=== PATIENT | male | born 1970 | race American Indian/Alaskan Native ===

== ENCOUNTER 2019-01-13 01:29 | Emergency (ER) | payer OTHER ==
[2019-01-13] MEDS ORDERED: Ibuprofen 800 MG Tab PO ONE (01:30)
[2019-01-13] MEDS ORDERED: Cyclobenzaprine 10 MG Tab PO ONE (01:30)
--- NOTE | 2019-01-13 01:46 | EDM.PDOC ---
ED HPI GENERAL MEDICAL PROBLEM - General Stated Complaint: BACK SPASM Time Seen by Provider: 01/13/19 01:46 Source of Information: Reports: Patient History Limitations: Reports: No Limitations - History of Present Illness INITIAL COMMENTS - FREE TEXT/NARRATIVE: Woke up with Back pain,.Mid back spasms with No radiation.Has not taken anything for relief. Earlier in the day,he had been lifting heavy furniture. No direct trauma. upper back Pain Score (Numeric/FACES): 8 - Related Data Allergies Allergy/AdvReac Type Severity Reaction Status Date / Time No Known Allergies Allergy Verified 01/13/19 01:41 Home Meds: Home Meds Losartan [Cozaar] 25 mg PO DAILY 01/13/19 [History] ED ROS GENERAL - Review of Systems Review Of Systems: ROS reveals no pertinent complaints other than HPI. ED EXAM, GENERAL - Physical Exam Exam: See Below Exam Limited By: No Limitations General Appearance: Alert, WD/WN, No Apparent Distress Respiratory/Chest: No Respiratory Distress, Lungs Clear Cardiovascular: Regular Rate, Rhythm GI/Abdominal: Normal Bowel Sounds Back Exam: Normal Inspection, Muscle Spasm, Paraspinal Tenderness. No: Vertebral Tenderness Neurological: Alert, CN II-XII Intact Course - Vital Signs Last Recorded V/S: Last Vital Signs Temp 98.0 F 01/13/19 01:55 Pulse 59 L 01/13/19 01:55 Resp 17 01/13/19 01:55 BP 160/92 H 01/13/19 01:55 Pulse Ox 100 01/13/19 01:55 Departure - Departure Time of Disposition: 08:14 Disposition: Home, Self-Care 01 Condition: Good Clinical Impression: Back muscle spasm - Discharge Information Instructions: Thoracic Strain, [id number] Referrals: PCP,None [Primary Care Provider] - Forms: ED Department Discharge Additional Instructions: please take Flexeril one tab three times a day and take ibuprofen 1 tab three times a day as needed follow up with your primary care on Monday - Problem List & Annotations (1) Back muscle spasm SNOMED Code(s): 246664112 Code(s): M62.830 - MUSCLE SPASM OF BACK Status: Acute - Problem List Review Problem List Initiated/Reviewed/Updated: Yes - Assessment/Plan Plan: Naproxen 500 mg po bid and Flexeril 10 qhs
== END 2019-01-13 01:56 | disposition home or self-care (01) ==
LOC: FB.ED 01:29
DX: M62.830 Muscle spasm of back (principal); Z79.899 Other long term (current) drug therapy
CPT/HCPCS: 99283; A9270-GY

== ENCOUNTER 2019-07-19 20:54 | Emergency (ER) | payer OTHER ==
[2019-07-19] MEDS ORDERED: predniSONE 20 MG Tab PO ONE (21:50)
--- NOTE | 2019-07-19 21:55 | EDM.PDOC ---
ED HPI GENERAL MEDICAL PROBLEM - General Chief Complaint: General Stated Complaint: GOUT FLARE Time Seen by Provider: 07/19/19 21:50 Source of Information: Reports: Patient History Limitations: Reports: No Limitations - History of Present Illness INITIAL COMMENTS - FREE TEXT/NARRATIVE: Patient complains of right great toe joint pain and swelling since 1300 today, feels like a gout flare. He has been out of his Allopurinol x 1 month. Patient requests Prednisone 20 mg daily x 5 days. Denies other complaints. Onset Date: 07/19/19 Onset Time: 13:00 Location: Reports: Lower Extremity, Right Severity: Moderate - Related Data Allergies Allergy/AdvReac Type Severity Reaction Status Date / Time No Known Allergies Allergy Verified 07/19/19 21:48 Home Meds: Home Meds Losartan [Cozaar] 25 mg PO DAILY 01/13/19 [History] .Allopurinol 1 tab PO ASDIRECTED 07/19/19 [History] Aspirin [Ecotrin EC] 81 mg PO DAILY 07/19/19 [History] Metoprolol Succinate 50 mg PO ASDIRECTED 07/19/19 [History] predniSONE [Prednisone] 20 mg PO DAILY #4 tablet 07/19/19 [Rx] Past Medical History Cardiovascular History: Reports: Hypertension Musculoskeletal History: Reports: Gout ED ROS GENERAL - Review of Systems Review Of Systems: Comprehensive ROS is negative, except as noted in HPI. ED EXAM, GENERAL - Physical Exam Exam: See Below Exam Limited By: No Limitations General Appearance: Alert, WD/WN, No Apparent Distress Throat/Mouth: No Airway Compromise Head: Atraumatic, Normocephalic Neck: Full Range of Motion Respiratory/Chest: No Respiratory Distress Peripheral Pulses: 2+: Dorsalis Pedis (R) Extremities: Other (Erythema, swelling, warmth, and tenderness to right 1st MTP joint.) Neurological: Alert, Normal Cognition, No Motor/Sensory Deficits Psychiatric: Normal Affect, Normal Mood Skin Exam: Warm, Dry, Intact Course - Vital Signs Last Recorded V/S: Last Vital Signs Temp 36.9 C 07/19/19 20:55 Pulse 84 07/19/19 20:55 Resp 16 07/19/19 20:55 BP 155/90 H 07/19/19 20:55 Pulse Ox 100 07/19/19 20:55 - Orders/Labs/Meds Orders: Active Orders 24 hr Category Date Time Status predniSONE Med 07/19/19 21:50 Once 20 mg PO ONETIME ONE Departure - Departure Time of Disposition: 21:57 Disposition: Home, Self-Care 01 Condition: Good Clinical Impression: Acute gout Qualifiers: Gout site: foot Gout etiology: unspecified cause Laterality: right Qualified Code(s): M10.9 - Gout, unspecified - Discharge Information *PRESCRIPTION DRUG MONITORING PROGRAM REVIEWED*: No *COPY OF PRESCRIPTION DRUG MONITORING REPORT IN PATIENT BENJAMIN: Not Applicable Prescriptions: predniSONE [Prednisone] 20 mg PO DAILY #4 tablet Referrals: PCP,None [Primary Care Provider] - Additional Instructions: Fill the prescription for Prednisone and take as directed. Follow up in 2 days if symptoms don't improve. Sepsis Event Note - Focused Exam Vital Signs: Vital Signs Temp Pulse Resp BP Pulse Ox 07/19/19 20:55 36.9 C 84 16 155/90 H 100 Date Exam was Performed: 07/19/19 Time Exam was Performed: 21:50 - My Orders Last 24 Hours: My Active Orders 07/19/19 21:50 predniSONE 20 mg PO ONETIME ONE - Assessment/Plan Last 24 Hours: My Active Orders 07/19/19 21:50 predniSONE 20 mg PO ONETIME ONE
== END 2019-07-19 22:15 | disposition home or self-care (01) ==
LOC: FB.ED 20:54
DX: M10.9 Gout, unspecified (principal); I10 Essential (primary) hypertension; Z79.82 Long term (current) use of aspirin; Z79.899 Other long term (current) drug therapy
CPT/HCPCS: 99283; A9270

== ENCOUNTER 2020-02-14 20:49 | Emergency (ER) | payer OTHER ==
[2020-02-14] MEDS ORDERED: predniSONE 20 MG Tab PO ONE (20:50)
--- NOTE | 2020-02-14 21:22 | EDM.PDOC ---
ED HPI GENERAL MEDICAL PROBLEM - General Chief Complaint: Lower Extremity Injury/Pain Stated Complaint: GOUT INFLAMATION Time Seen by Provider: 02/14/20 20:50 Source of Information: Reports: Patient History Limitations: Reports: No Limitations - History of Present Illness INITIAL COMMENTS - FREE TEXT/NARRATIVE: pt comes in with c/o left ankle pain , tells me he has recurrent pain at left ankle secondary to gout and that he is out of his allopurinol , this has bee flaring up for 3 days , denies trauma , fever, chills or any other associated sx or concerns. - Related Data Allergies Allergy/AdvReac Type Severity Reaction Status Date / Time No Known Allergies Allergy Verified 02/14/20 21:08 Home Meds: Home Meds Losartan [Cozaar] 25 mg PO DAILY 01/13/19 [History] .Allopurinol 1 tab PO DAILY 07/19/19 [History] Aspirin [Ecotrin EC] 81 mg PO DAILY 07/19/19 [History] Metoprolol Succinate 50 mg PO DAILY 07/19/19 [History] predniSONE 20 mg PO DAILY #4 tab 07/19/19 [Rx] Past Medical History Cardiovascular History: Reports: Hypertension Respiratory History: Reports: Sleep Apnea Musculoskeletal History: Reports: Gout - Past Surgical History HEENT Surgical History: Reports: Other (See Below) Other HEENT Surgeries/Procedures: Reconstructive jaw surgery for underbit, when young. Review of Systems - Review of Systems Review Of Systems: See Below Constitutional: Reports: No Symptoms Respiratory: Reports: No Symptoms Cardiovascular: Reports: No Symptoms GI/Abdominal: Reports: No Symptoms Musculoskeletal: Reports: No Symptoms ED EXAM, GENERAL - Physical Exam Exam: See Below Exam Limited By: No Limitations General Appearance: Alert, No Apparent Distress Eye Exam: Bilateral Eye: Normal Inspection Nose: Normal Inspection Throat/Mouth: Normal Inspection Head: Atraumatic Neck: Normal Inspection Respiratory/Chest: No Respiratory Distress, Lungs Clear, Normal Breath Sounds Cardiovascular: Normal Peripheral Pulses, Regular Rate, Rhythm GI/Abdominal: Normal Bowel Sounds, Soft, Non-Tender Back Exam: Normal Inspection Extremities: Normal Inspection, Other (tenderness all around left ankle noted , skin is nl, no swelling or deformitis. ) Neurological: Alert, Oriented, CN II-XII Intact, Normal Reflexes, No Motor/Sensory Deficits Course - Vital Signs Text/Narrative:: prednisone for few days was given as well rx on allopurinol. Departure - Departure Time of Disposition: 21:24 Disposition: Home, Self-Care 01 Clinical Impression: Gout attack Qualifiers: Gout site: foot Gout etiology: unspecified cause Laterality: right Qualified Code(s): M10.9 - Gout, unspecified - Discharge Information Referrals: PCP,None [Primary Care Provider] -
== END 2020-02-14 21:45 | disposition home or self-care (01) ==
LOC: FB.ED 20:49
DX: M10.9 Gout, unspecified (principal); I10 Essential (primary) hypertension; Z79.899 Other long term (current) drug therapy; Z79.82 Long term (current) use of aspirin
CPT/HCPCS: 99283; J7512

== ENCOUNTER 2020-04-01 11:52 | Emergency (ER) | payer OTHER ==
--- NOTE | 2020-04-01 13:40 | CR ---
INDICATION: Dyspnea. Positive COVID test. CHEST, ONE VIEW: An AP upright portable view of the chest was obtained 04/01/20 - no comparisons. Patchy infiltration scattered throughout the lungs is noted, most prominent in the upper middle lung field and lower lung field on the right and mid lung field to lower middle lung field on the left. The appearance would be compatible with COVID-19, although other cause of pneumonia cannot be excluded. The heart appears prominent, but not grossly enlarged allowing for AP positioning and poor inspiration. IMPRESSION: Bilateral infiltrates compatible with pneumonia, although unusual pulmonary edema would also be a consideration. MTDD
--- NOTE | 2020-04-01 14:20 | EDM.PDOC ---
ED HPI GENERAL MEDICAL PROBLEM - General Chief Complaint: Respiratory Problem Stated Complaint: COVID Time Seen by Provider: 04/01/20 12:05 Source of Information: Reports: Patient History Limitations: Reports: No Limitations - History of Present Illness INITIAL COMMENTS - FREE TEXT/NARRATIVE: Patient presented to the ED because of increasing cough and dyspnea. He was diagnosed with COVID 19 2 days ago. Initially he has cough and cold symptoms followed by diarrhea and fever. His oxygen saturation was 90 % on RA upon his arrival in the ED. - Related Data Allergies Allergy/AdvReac Type Severity Reaction Status Date / Time No Known Allergies Allergy Verified 04/01/20 11:53 Home Meds: Home Meds Losartan [Cozaar] 25 mg PO DAILY 01/13/19 [History] Aspirin [Ecotrin EC] 81 mg PO DAILY 07/19/19 [History] Metoprolol Succinate 50 mg PO DAILY 07/19/19 [History] allopurinoL [Zyloprim] 100 mg PO DAILY 30 Days #30 tab 02/14/20 [Rx] Azithromycin [Zithromax] 250 mg PO DAILY #6 tablet 04/01/20 [Rx] dexAMETHasone [Dexamethasone] 8 mg PO Q6H #14 tab 04/01/20 [Rx] Past Medical History Cardiovascular History: Reports: Hypertension Respiratory History: Reports: Sleep Apnea Other Respiratory History: Uses CPAP machine. 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 Social & Family History - Tobacco Use Tobacco Use Status *Q: Never Tobacco User - Caffeine Use Caffeine Use: Reports: Soda - Recreational Drug Use Recreational Drug Use: No ED ROS GENERAL - Review of Systems Review Of Systems: See Below Constitutional: Reports: No Symptoms HEENT: Reports: Ear Pain Respiratory: Reports: Cough Cardiovascular: Reports: No Symptoms Endocrine: Reports: No Symptoms GI/Abdominal: Reports: No Symptoms : Reports: No Symptoms Musculoskeletal: Reports: No Symptoms Skin: Reports: No Symptoms Neurological: Reports: No Symptoms Psychiatric: Reports: No Symptoms ED EXAM, GENERAL - Physical Exam Exam: See Below Exam Limited By: No Limitations General Appearance: Alert, No Apparent Distress Back Exam: Normal Inspection, Full Range of Motion Extremities: Normal Inspection, Normal Range of Motion Neurological: Alert, Oriented, CN II-XII Intact Psychiatric: Normal Affect Skin Exam: Warm Course - Vital Signs Text/Narrative:: Labs/CXR result was discussed with patient O2 VNC and his breathing significantly improved Start on decadron 8 mg X 7v days Z-lisa for otitis media Last Recorded V/S: Last Vital Signs Temp 36.8 C 04/01/20 12:02 Pulse 74 04/01/20 14:12 Resp 20 04/01/20 14:12 BP 125/67 04/01/20 14:12 Pulse Ox 92 L 04/01/20 14:12 - Orders/Labs/Meds Labs: Laboratory Tests 04/01/20 04/01/20 04/01/20 Range/Units 12:35 12:35 12:35 WBC 7.4 (4.5-12.0) X10-3/uL RBC 4.55 (4.30-5.75) x10(6)uL Hgb 13.3 L (13.5-17.8) g/dL Hct 39.8 (30.0-51.3) % MCV 87.5 (80-96) fL MCH 29.3 (27.7-33.6) pg MCHC 33.5 (32.2-35.4) g/dL RDW 12.7 (11.5-15.5) % Plt Count 224 (125-369) X10(3)uL MPV 7.4 (7.4-10.4) fL Add Manual Diff Yes Neutrophils % (Manual) 89 H (46-82) % Lymphocytes % (Manual) 5 L (13-37) % Monocytes % (Manual) 6 (4-12) % D-Dimer, Quantitative 1.00 H (0.0-0.59) mg/LFEU Sodium 136 (135-145) mmol/L Potassium 3.7 (3.5-5.3) mmol/L Chloride 100 (100-110) mmol/L Carbon Dioxide 26 (21-32) mmol/L BUN 15 (7-18) mg/dL Creatinine 1.1 (0.70-1.30) mg/dL Est Cr Clr Drug Dosing 75.11 mL/min Estimated GFR (MDRD) > 60 (>60) BUN/Creatinine Ratio 13.6 (9-20) Glucose 193 H (80-116) mg/dL Calcium 8.2 L (8.6-10.2) mg/dL Total Bilirubin 0.7 (0.1-1.3) mg/dL AST 94 H (5-25) IU/L ALT 110 H (12-36) U/L Alkaline Phosphatase 48 L (56-112) IU/L Troponin I (4.0-60.3) pg/mL C-Reactive Protein (0.5-0.9) mg/dL NT-Pro-B Natriuret Pep (<=125) pg/mL Total Protein 7.0 (6.0-8.0) g/dL Albumin 2.9 L (3.5-5.2) g/dL Globulin 4.1 g/dL Albumin/Globulin Ratio 0.7 04/01/20 04/01/20 Range/Units 12:35 12:35 WBC (4.5-12.0) X10-3/uL RBC (4.30-5.75) x10(6)uL Hgb (13.5-17.8) g/dL Hct (30.0-51.3) % MCV (80-96) fL MCH (27.7-33.6) pg MCHC (32.2-35.4) g/dL RDW (11.5-15.5) % Plt Count (125-369) X10(3)uL MPV (7.4-10.4) fL Add Manual Diff Neutrophils % (Manual) (46-82) % Lymphocytes % (Manual) (13-37) % Monocytes % (Manual) (4-12) % D-Dimer, Quantitative (0.0-0.59) mg/LFEU Sodium (135-145) mmol/L Potassium (3.5-5.3) mmol/L Chloride (100-110) mmol/L Carbon Dioxide (21-32) mmol/L BUN (7-18) mg/dL Creatinine (0.70-1.30) mg/dL Est Cr Clr Drug Dosing mL/min Estimated GFR (MDRD) (>60) BUN/Creatinine Ratio (9-20) Glucose (80-116) mg/dL Calcium (8.6-10.2) mg/dL Total Bilirubin (0.1-1.3) mg/dL AST (5-25) IU/L ALT (12-36) U/L Alkaline Phosphatase (56-112) IU/L Troponin I 5.7 (4.0-60.3) pg/mL C-Reactive Protein 9.6 H* (0.5-0.9) mg/dL NT-Pro-B Natriuret Pep 89 (<=125) pg/mL Total Protein (6.0-8.0) g/dL Albumin (3.5-5.2) g/dL Globulin g/dL Albumin/Globulin Ratio Departure - Departure Time of Disposition: 14:30 Disposition: Home, Self-Care 01 Condition: Good Clinical Impression: COVID-19, Otitis media - Discharge Information Prescriptions: dexAMETHasone [Dexamethasone] 8 mg PO Q6H #14 tab Azithromycin [Zithromax] 250 mg PO DAILY #6 tablet Instructions: COVID-19 Frequently Asked Questions, Otitis Media, Adult, [id number] Referrals: PCP,None [Primary Care Provider] - Forms: ED Department Discharge Additional Instructions: Please read discharge instructions on COVID 19 and middle ear infection Increase oral fluids, at least 3 liters a day Take ibuprofen 800 mg with tylenol 1000 mg every 8 hours as needed for fever/pain Decadron/dexamethasone 2 tablets daily for 7 days Z-lisa as directed Follow up as needed or return to the ED if your shortness of breath is getting worse Sepsis Event Note (ED) - Evaluation Sepsis Screening Result: Possible Sepsis Risk - Focused Exam Vital Signs: Vital Signs Temp Pulse Resp BP Pulse Ox 04/01/20 14:12 74 20 125/67 92 L 04/01/20 12:02 36.8 C 81 22 H 135/71 90 L
[2020-04-01] MEDS ORDERED: Azithromycin 500 MG Tab PO ONE (14:46)
[2020-04-01] MEDS ORDERED: Dexamethasone 4 MG Tab PO STA (14:46)
== END 2020-04-01 16:10 | disposition home or self-care (01) ==
LOC: FB.ED 11:52
DX: U07.1 COVID-19 (principal); H66.90 Otitis media, unspecified, unspecified ear; I10 Essential (primary) hypertension; M10.9 Gout, unspecified; Z79.82 Long term (current) use of aspirin; Z79.899 Other long term (current) drug therapy
CPT/HCPCS: 36415; 71045; 80053; 83880; 84484; 85025; 85379; 86140; 99285; A9270; J8540; 99283

== ENCOUNTER 2020-04-02 19:17 | Emergency (ER) | payer OTHER ==
--- NOTE | 2020-04-02 19:50 | EDM.PDOC ---
ED HPI GENERAL MEDICAL PROBLEM - General Chief Complaint: Respiratory Problem Stated Complaint: SOB Time Seen by Provider: 04/02/20 19:40 Source of Information: Reports: Patient, Old Records History Limitations: Reports: No Limitations - History of Present Illness INITIAL COMMENTS - FREE TEXT/NARRATIVE: Aashish returns to [facility] ED with reported increasing SOB at rest and with ex ertion. He was seen yesterday in the ED and diagnosed with Covid 19 w pneumonia, and sent home on home . Upon arrival, his 02 sats 88% on RA, improving to 93% on 02 per entomology teacher at 4L/min. He is frustrated that current therapy with Dexamethasone and Zithromax is not working. He tested positive at [facility] screening on March 31. generalized Pain Score (Numeric/FACES): 3 - Related Data Allergies Allergy/AdvReac Type Severity Reaction Status Date / Time No Known Allergies Allergy Verified 04/01/20 11:53 Home Meds: Home Meds Losartan [Cozaar] 25 mg PO DAILY 01/13/19 [History] Aspirin [Ecotrin EC] 81 mg PO DAILY 07/19/19 [History] Metoprolol Succinate 50 mg PO DAILY 07/19/19 [History] allopurinoL [Zyloprim] 100 mg PO DAILY 30 Days #30 tab 02/14/20 [Rx] Azithromycin [Zithromax] 250 mg PO DAILY #6 tablet 04/01/20 [Rx] dexAMETHasone [Dexamethasone] 8 mg PO Q6H #14 tab 04/01/20 [Rx] Past Medical History Cardiovascular History: Reports: Hypertension, Other (See Below) Other Cardiovascular History: on lisinopril and aspirin daily. Respiratory History: Reports: Pneumonia, Recurrent, Sleep Apnea Other Respiratory History: Uses CPAP machine. 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 Social & Family History - Family History Family Medical History: No Pertinent Family History - Caffeine Use Caffeine Use: Reports: Soda ED ROS GENERAL - Review of Systems Review Of Systems: Comprehensive ROS is negative, except as noted in HPI. ED EXAM, GENERAL - Physical Exam Exam: See Below Exam Limited By: No Limitations General Appearance: Alert, WD/WN, Anxious, Mild Distress, Obese Eye Exam: Bilateral Eye: EOMI, Normal Inspection, PERRL Ears: Normal External Exam Nose: Normal Inspection Throat/Mouth: Normal Inspection, Normal Oropharynx Head: Normocephalic Neck: Normal Inspection, Supple, Non-Tender, Full Range of Motion Respiratory/Chest: Chest Non-Tender, Decreased Breath Sounds, Crackles, Rhonchi, Prolonged Expiration Cardiovascular: Regular Rate, Rhythm, No Murmur GI/Abdominal: Soft, Non-Tender, No Organomegaly, No Distention, No Mass (Male) Exam: Deferred Rectal (Males) Exam: Deferred Back Exam: Normal Inspection Extremities: Normal Inspection Neurological: Alert, Oriented, CN II-XII Intact, Normal Cognition, No Motor/Sensory Deficits Psychiatric: Normal Affect, Anxious Skin Exam: Warm, Dry, Intact, Normal Color, No Rash Lymphatic: No Adenopathy Course - Vital Signs Text/Narrative:: Following assessment at the ED, I repeated the chest x ray, noting ongoing bilateral pulmonary infiltrates without consolidation or effusion; 02 sats varied from 94-98% on 6 lpm, and eventually were stable at 4 lpm per entomology teacher. He has a home oximiter that was compatible with hospital measurments. Last Recorded V/S: Last Vital Signs Temp 37.7 C 04/02/20 19:25 Pulse 77 04/02/20 19:25 Resp 17 04/02/20 19:25 BP 135/62 04/02/20 19:25 Pulse Ox 95 04/02/20 20:15 - Orders/Labs/Meds Orders: Active Orders 24 hr Category Date Time Status Chest 1V Frontal [CR] Stat Exams 04/02/20 19:43 Taken Departure - Departure Time of Disposition: 20:49 Disposition: Home, Self-Care 01 Condition: Fair Clinical Impression: COVID-19 Pneumonia Qualifiers: Pneumonia type: due to unspecified organism Laterality: bilateral Lung location: lower lobe of lung Qualified Code(s): J18.9 - Pneumonia, unspecified organism - Discharge Information *PRESCRIPTION DRUG MONITORING PROGRAM REVIEWED*: Not Applicable *COPY OF PRESCRIPTION DRUG MONITORING REPORT IN PATIENT BENJAMIN: Not Applicable Referrals: PCP,None [Primary Care Provider] - Forms: ED Department Discharge Sepsis Event Note (ED) - Evaluation Sepsis Screening Result: No Definite Risk - Focused Exam Vital Signs: Vital Signs Temp Pulse Resp BP Pulse Ox Pulse Ox 04/02/20 20:15 95 11/12/20 19:25 37.7 C 77 17 135/62 93 L 93 L - Problem List & Annotations (1) COVID-19 SNOMED Code(s): 962904637 Code(s): U07.1 - COVID-19 Status: Acute Current Visit: Yes Annotation/Comment:: Finish out Dexamethasone and Zithromax as directed, and continue home 02. (2) Pneumonia SNOMED Code(s): 570783803 Code(s): J18.9 - PNEUMONIA, UNSPECIFIED ORGANISM Status: Acute Current Visit: Yes Annotation/Comment:: Monitor 02 sats and adjust 02 per entomology teacher not to exceed 7lpm. If 02 sats cannot be maintained at or above 94%, then follow up in ED. Qualifiers: Pneumonia type: due to unspecified organism Laterality: bilateral Lung location: lower lobe of lung Qualified Code(s): J18.9 - Pneumonia, unspecified organism - Problem List Review Problem List Initiated/Reviewed/Updated: Yes - My Orders Last 24 Hours: My Active Orders 04/02/20 19:43 Chest 1V Frontal [CR] Stat - Assessment/Plan Last 24 Hours: My Active Orders 04/02/20 19:43 Chest 1V Frontal [CR] Stat Plan: Follow up if sxs progress.
== END 2020-04-02 21:18 | disposition home or self-care (01) ==
LOC: FB.ED 19:17
DX: U07.1 COVID-19 (principal); J12.89 Other viral pneumonia; M10.9 Gout, unspecified; I10 Essential (primary) hypertension; Z79.82 Long term (current) use of aspirin; Z79.899 Other long term (current) drug therapy
CPT/HCPCS: 71045; 99284; 99284-25

== ENCOUNTER 2021-02-08 17:51 | Emergency (ER) | payer BC, OTHER ==
[2021-02-08] MEDS ORDERED: Ketorolac 30 MG/ML SDV IM ONE (19:17)
[2021-02-08] MEDS ORDERED: Amoxicillin 500 MG Cap PO ONE (19:23)
[2021-02-08] MEDS ORDERED: predniSONE 20 MG Tab PO ONE (19:24)
--- NOTE | 2021-02-08 19:25 | EDM.PDOC ---
ED HPI GENERAL MEDICAL PROBLEM - General Stated Complaint: EAR ACHE Time Seen by Provider: 02/08/21 18:45 Source of Information: Reports: Patient History Limitations: Reports: No Limitations - History of Present Illness INITIAL COMMENTS - FREE TEXT/NARRATIVE: c/o R ear pain worked at [employer] x 1y, not missed work in 1y pain in R ear at 8:30a today, ibuprofen 200 mg x 3 helped for 3h, pain now back has had OM 1x/yr on average, on both sides has daily nasal d/c only med is lisinopril not on allergy meds, which was discussed lives alone had COVID 10m ago, has had COVID vax x 2, no booster - Related Data Allergies Allergy/AdvReac Type Severity Reaction Status Date / Time No Known Allergies Allergy Verified 04/01/20 11:53 Home Meds: Home Meds Losartan [Cozaar] 25 mg PO DAILY 01/13/19 [History] Aspirin [Ecotrin EC] 81 mg PO DAILY 07/19/19 [History] Metoprolol Succinate 50 mg PO DAILY 07/19/19 [History] allopurinoL [Zyloprim] 100 mg PO DAILY 30 Days #30 tab 02/14/20 [Rx] Azithromycin [Zithromax] 250 mg PO DAILY #6 tablet 04/01/20 [Rx] dexAMETHasone [Dexamethasone] 8 mg PO Q6H #14 tab 04/01/20 [Rx] Amoxicillin 500 mg PO TID #21 tablet 02/08/21 [Rx] Fluticasone Propionate 16 gm NS DAILY #1 spray.susp 02/08/21 [Rx] Loratadine 10 mg PO DAILY #30 tablet 02/08/21 [Rx] predniSONE 20 mg PO DAILY #7 tab 02/08/21 [Rx] Past Medical History Cardiovascular History: Reports: Hypertension, Other (See Below) Other Cardiovascular History: on lisinopril and aspirin daily. Respiratory History: Reports: Pneumonia, Recurrent, Sleep Apnea Other Respiratory History: Uses CPAP machine. 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 Social & Family History - Family History Family Medical History: No Pertinent Family History - Caffeine Use Caffeine Use: Reports: Soda ED ROS ENT - Review of Systems Review Of Systems: See Below Constitutional: Reports: No Symptoms. Denies: Fever HEENT: Reports: Ear Pain, Rhinitis Respiratory: Reports: No Symptoms Endocrine: Reports: No Symptoms GI/Abdominal: Reports: No Symptoms : Reports: No Symptoms Musculoskeletal: Reports: No Symptoms Skin: Reports: No Symptoms Neurological: Reports: No Symptoms Psychiatric: Reports: No Symptoms Hematologic/Lymphatic: Reports: No Symptoms Immunologic: Reports: No Symptoms ED EXAM, ENT - Physical Exam Exam: See Below Exam Limited By: No Limitations General Appearance: Alert, WD/WN, No Apparent Distress Ears: Other (L TM wnl, R TM with visible umbo but some distortion and no long process malleoulus seen, no definite bulge, normal color, no red) Nose: Other (80% swell nares b/l, clear d/c) Mouth/Throat: Other (o-p neg, neck no LNs) Head: Atraumatic, Normocephalic Neck: Normal Inspection, Supple, Non-Tender, Full Range of Motion. No: Lymphadenopathy (R), Lymphadenopathy (L) Respiratory/Chest: No Respiratory Distress, Lungs Clear, Normal Breath Sounds, No Accessory Muscle Use, Chest Non-Tender Cardiovascular: Regular Rate, Rhythm, No Edema, No Gallop, No Murmur GI/Abdominal: Soft Extremities: Normal Inspection, No Pedal Edema Neurological: Alert, Oriented, CN II-XII Intact, Normal Cognition, No Motor/Sensory Deficits Psychiatric: Normal Affect Skin: Warm, Dry, Intact, Normal Color, No Rash Course - Orders/Labs/Meds Orders: Active Orders 24 hr Category Date Time Status Ketorolac [Toradol] Med 02/08/21 19:17 Once 60 mg IM ONETIME ONE - Re-Assessments/Exams Free Text/Narrative Re-Assessment/Exam: 02/08/21 19:47 hx c/w chronic allergic rhinitis untx'ed with yearly secondary OM need for regular meds to keep down swelling discussed Departure - Departure Time of Disposition: 19:18 Disposition: Home, Self-Care 01 Preliminary Cause of *Q: Sepsis & Multi System Organ Failure Clinical Impression: Right serous otitis media, Chronic allergic rhinitis - Discharge Information *PRESCRIPTION DRUG MONITORING PROGRAM REVIEWED*: No *COPY OF PRESCRIPTION DRUG MONITORING REPORT IN PATIENT BENJAMIN: No Prescriptions: Amoxicillin 500 mg PO TID #21 tablet Fluticasone Propionate 16 gm NS DAILY #1 spray.susp Loratadine 10 mg PO DAILY #30 tablet predniSONE 20 mg PO DAILY #7 tab Instructions: Allergic Rhinitis, Adult, Otitis Media, Adult Referrals: PCP,None [Primary Care Provider] - - My Orders Last 24 Hours: My Active Orders 02/08/21 19:17 Ketorolac [Toradol] 60 mg IM ONETIME ONE - Assessment/Plan Last 24 Hours: My Active Orders 02/08/21 19:17 Ketorolac [Toradol] 60 mg IM ONETIME ONE
== END 2021-02-08 19:46 | disposition home or self-care (01) ==
LOC: FB.ED 17:51
DX: H65.91 Unspecified nonsuppurative otitis media, right ear (principal); J30.9 Allergic rhinitis, unspecified; I10 Essential (primary) hypertension; M10.9 Gout, unspecified; Z86.16 Personal history of COVID-19; Z79.82 Long term (current) use of aspirin; Z79.899 Other long term (current) drug therapy
CPT/HCPCS: 96372; 99282; A9270; J1885; J7512

== ENCOUNTER 2021-07-16 21:29 | Emergency (ER) | payer OTHER ==
[2021-07-16] MEDS: Ibuprofen 800 MG Tab PO ONE (22:09)
[2021-07-16] MEDS: Acetaminophen 500 MG Tab PO ONE (22:09)
[2021-07-16] MEDS: predniSONE 20 MG Tab PO STA (22:41)
[2021-07-16] MEDS: cloNIDine 0.1 MG Tab PO ONE (23:17)
[2021-07-16] MEDS: hydrALAZINE 20 MG/ML SDV IM STA (23:17)
[2021-07-16] MEDS: oxyCODONE 5 MG Tab PO STA (23:57)
== END 2021-07-16 23:40 | disposition home or self-care (01) ==
LOC: FB.ED 21:29
DX: S83.91XA Sprain of unspecified site of right knee, initial encounter (principal); I10 Essential (primary) hypertension; I25.2 Old myocardial infarction; E66.9 Obesity, unspecified; Z79.82 Long term (current) use of aspirin; Z68.41 Body mass index [BMI] 40.0-44.9, adult; Z79.899 Other long term (current) drug therapy; W00.0XXA Fall on same level due to ice and snow, initial encounter
CPT/HCPCS: 73562-RT; 96372; 99283; 99283-25; A9270-GY; J0360; J7512

== ENCOUNTER 2022-04-28 20:16 | Emergency (ER) | payer OTHER ==
[2022-04-28] MEDS ORDERED: Cyclobenzaprine 10 MG Tab PO ONE (20:33)
[2022-04-28] MEDS ORDERED: Ketorolac 30 MG/ML SDV IM ONE (20:33)
[2022-04-28] MEDS ORDERED: Acetaminophen 500 MG Tab PO ONE (20:33)
== END 2022-04-28 21:44 | disposition home or self-care (01) ==
LOC: FB.ED 20:16
DX: M62.830 Muscle spasm of back (principal); I10 Essential (primary) hypertension; I25.2 Old myocardial infarction; E66.9 Obesity, unspecified; Z68.41 Body mass index [BMI] 40.0-44.9, adult; Z79.82 Long term (current) use of aspirin; Z79.899 Other long term (current) drug therapy; Z86.16 Personal history of COVID-19
CPT/HCPCS: 96372; 99283; A9270; J1885

== ENCOUNTER 2024-01-24 20:00 | Emergency (ER) | payer BC ==
[2024-01-24 21:37] LABS: BASOPHILS PERCENT AUTO 0.3 % (0.3-3.8); EOSINOPHILS ABSOLUTE AUTO 0.2 x10-3/uL (0.0-0.6); EOSINOPHILS PERCENT AUTO 1.9 % (0.1-6.8); HEMATOCRIT 41.1 % (38.3-50.1); HEMOGLOBIN 13.9 g/dL (12.9-17.7); LYMPHOCYTES ABSOLUTE AUTO 2.4 x10-3/uL (0.5-4.5); LYMPHOCYTES PERCENT AUTO 28.2 % (15.8-45.3); MEAN CORPUSCULAR HEMOGLOBIN 29.8 pg (27.0-33.3); MEAN CORPUSCULAR HGB CONC 33.8 g/dL (28.7-35.3); MEAN CORPUSCULAR VOLUME 88.3 fL (80.8-98.7); MONOCYTES ABSOLUTE AUTO 0.6 x10-3/uL (0.0-1.2); MONOCYTES PERCENT AUTO 6.9 % (5.5-15.2); NEUTROPHILS ABSOLUTE AUTO 5.3 x10-3/uL (1.7-6.9); NEUTROPHILS PERCENT AUTO 62.7 % (40.3-71.8); PLATELET COUNT,PLT 258 x10(3)uL (117-477); RED BLOOD CELL COUNT 4.65 x10(6)uL (3.90-5.90); RED CELL DISTRIBUTION WIDTH 13.7 % (12.4-15.0); WHITE BLOOD CELL COUNT,WBC 8.5 x10-3/uL (3.2-10.1)
[2024-01-24 21:42] LABS: BLOOD UREA NITROGEN,BUN 23 mg/dL (7-18); BUN/CREATININE RATIO 19.2 (9-20); CALCIUM 8.7 mg/dL (8.6-10.2); CARBON DIOXIDE,CO2 27 mmol/L (21-32); CHLORIDE,CL 105 mmol/L (100-110); CREATININE 1.2 mg/dL (0.70-1.30); ESTIMATED GFR 72 mL/min (>60); GLUCOSE RANDOM 125 mg/dL (80-116); POTASSIUM,K 3.7 mmol/L (3.5-5.3); SODIUM,NA 140 mmol/L (135-145)
[2024-01-24 21:48] LABS: ALANINE AMINOTRANSFERASE,ALT 50 U/L (12-36); ALBUMIN 3.8 g/dL (3.5-5.2); ALKALINE PHOSPHATASE 96 IU/L (56-112); ASPARTATE AMNIOTRANSFERASE,AST 32 IU/L (5-25); BILIRUBIN TOTAL 0.4 mg/dL (0.1-1.3); PROTEIN TOTAL,TP 7.6 g/dL (6.0-8.0)
[2024-01-24] MEDS: Dexamethasone 4 MG/ML 5 ML MDV IM ONE (23:00)
== END 2024-01-24 23:30 | disposition home or self-care (01) ==
LOC: FB.ED 20:00
DX: M10.9 Gout, unspecified (principal); E66.9 Obesity, unspecified; Z79.899 Other long term (current) drug therapy; Z86.16 Personal history of COVID-19; Z68.41 Body mass index [BMI] 40.0-44.9, adult
CPT/HCPCS: 36415; 80053; 84550; 85025; 86140; 96372; 99283; J1100

== ENCOUNTER 2024-05-15 13:29 | Emergency (ER) | payer BC, OTHER ==
[2024-05-15] MEDS: Triamcinolone Acetonide 40 MG/ML 1 ML SDV IM ONE (14:00)
[2024-05-15] MEDS: Lidocaine 2% 5 ML SDV INJECT ONE (14:00)
== END 2024-05-15 14:04 | disposition home or self-care (01) ==
LOC: FB.ED 13:29
DX: M70.52 Other bursitis of knee, left knee (principal); I25.2 Old myocardial infarction; I10 Essential (primary) hypertension; E11.9 Type 2 diabetes mellitus without complications; E66.9 Obesity, unspecified; Z79.84 Long term (current) use of oral hypoglycemic drugs; Z86.16 Personal history of COVID-19; Z79.899 Other long term (current) drug therapy; Z68.41 Body mass index [BMI] 40.0-44.9, adult
CPT/HCPCS: 96372; 99283; J3301

== ENCOUNTER 2024-05-21 20:02 | Emergency (ER) | payer BC ==
[2024-05-21] MEDS ORDERED: predniSONE 20 MG Tab PO ONE (20:03)
== END 2024-05-21 20:50 | disposition home or self-care (01) ==
LOC: FB.ED 20:02
DX: M10.9 Gout, unspecified (principal); I25.2 Old myocardial infarction; I10 Essential (primary) hypertension; E66.9 Obesity, unspecified; Z68.41 Body mass index [BMI] 40.0-44.9, adult; Z86.16 Personal history of COVID-19; Z79.84 Long term (current) use of oral hypoglycemic drugs; Z79.899 Other long term (current) drug therapy
CPT/HCPCS: 99283; J7512

== ENCOUNTER 2024-12-25 09:55 | Emergency (ER) | payer BC | END 2024-12-25 12:00 | disposition home or self-care (01) | LOC: FB.ED 09:55 | DX: M54.9 Dorsalgia, unspecified (principal); I10 Essential (primary) hypertension; I25.2 Old myocardial infarction; Z86.16 Personal history of COVID-19; Z79.899 Other long term (current) drug therapy; Z79.84 Long term (current) use of oral hypoglycemic drugs | CPT/HCPCS: 99283; A9270-GY ==

== ENCOUNTER 2025-02-23 21:49 | Emergency (ER) | payer BC ==
[2025-02-23 22:25] LABS: BASOPHILS ABSOLUTE AUTO 0.0 x10-3/uL (0.0-0.3); BASOPHILS PERCENT AUTO 0.6 % (0.3-3.8); EOSINOPHILS ABSOLUTE AUTO 0.1 x10-3/uL (0.0-0.6); EOSINOPHILS PERCENT AUTO 1.6 % (0.1-6.8); LYMPHOCYTES ABSOLUTE AUTO 2.5 x10-3/uL (0.5-4.5); LYMPHOCYTES PERCENT AUTO 28.3 % (15.8-45.3); MEAN PLATELET VOLUME 8.0 fL (6.7-11.0); MONOCYTES ABSOLUTE AUTO 0.6 x10-3/uL (0.0-1.2); MONOCYTES PERCENT AUTO 7.1 % (5.5-15.2); NEUTROPHILS ABSOLUTE AUTO 5.5 x10-3/uL (1.7-6.9); NEUTROPHILS PERCENT AUTO 62.4 % (40.3-71.8); PLATELET COUNT,PLT 228 x10(3)uL (117-477); RED BLOOD CELL COUNT 4.89 x10(6)uL (3.90-5.90); RED CELL DISTRIBUTION WIDTH 14.2 % (12.4-15.0); WHITE BLOOD CELL COUNT,WBC 8.8 x10-3/uL (3.2-10.1)
[2025-02-23 22:37] LABS: A/G RATIO 1.0; ALANINE AMINOTRANSFERASE,ALT 112 U/L (12-36); ASPARTATE AMNIOTRANSFERASE,AST 60 IU/L (5-25); BILIRUBIN TOTAL 0.6 mg/dL (0.1-1.3); BLOOD UREA NITROGEN,BUN 51 mg/dL (7-18); CARBON DIOXIDE,CO2 24 mmol/L (21-32); CHLORIDE,CL 101 mmol/L (100-110); ESTIMATED GFR 33 mL/min (>60); GLUCOSE RANDOM 95 mg/dL (80-116); POTASSIUM,K 4.6 mmol/L (3.5-5.3); PROTEIN TOTAL,TP 8.4 g/dL (6.0-8.0); SODIUM,NA 135 mmol/L (135-145)
[2025-02-23 22:42] LABS: CREATINE KINASE,CK 1038 IU/L (60-160); CREATININE 2.3 mg/dL (0.70-1.30)
[2025-02-23] MEDS ORDERED: Sodium Chloride 0.9% 10 ML Syringe FLUSH PRN (23:29)
[2025-02-24 00:21] LABS: GLUCOSE,URINE NORMAL (NORMAL); OCCULT BLOOD,URINE NEGATIVE (NEGATIVE)
[2025-02-24 00:45] LABS: APPEARANCE,URINE CLEAR (CLEAR)
[2025-02-24 00:58] LABS: A/G RATIO 0.9; ALANINE AMINOTRANSFERASE,ALT 103 U/L (12-36); ASPARTATE AMNIOTRANSFERASE,AST 56 IU/L (5-25); BILIRUBIN TOTAL 0.5 mg/dL (0.1-1.3); BLOOD UREA NITROGEN,BUN 50 mg/dL (7-18); CARBON DIOXIDE,CO2 25 mmol/L (21-32); CHLORIDE,CL 104 mmol/L (100-110); ESTIMATED GFR 39 mL/min (>60); GLUCOSE RANDOM 82 mg/dL (80-116); POTASSIUM,K 4.4 mmol/L (3.5-5.3); PROTEIN TOTAL,TP 7.7 g/dL (6.0-8.0); SODIUM,NA 137 mmol/L (135-145)
[2025-02-24 01:10] LABS: CREATININE 2.0 mg/dL (0.70-1.30)
== END 2025-02-24 01:39 | disposition home or self-care (01) ==
LOC: FB.ED 21:49
DX: M62.82 Rhabdomyolysis (principal); I10 Essential (primary) hypertension; I25.2 Old myocardial infarction; E11.9 Type 2 diabetes mellitus without complications; E66.9 Obesity, unspecified; Z86.16 Personal history of COVID-19; Z79.84 Long term (current) use of oral hypoglycemic drugs; Z79.899 Other long term (current) drug therapy
CPT/HCPCS: 36415; 80053; 81003; 82550; 83735; 85025; 86140; 96360; 96361; 99284; J7030

== ENCOUNTER 2025-02-26 13:22 | Emergency (ER) | payer BC ==
[2025-02-26] MEDS ORDERED: Sodium Chloride 0.9% 10 ML Syringe FLUSH PRN (13:54)
[2025-02-26 14:26] LABS: BASOPHILS ABSOLUTE AUTO 0.0 x10-3/uL (0.0-0.3); BASOPHILS PERCENT AUTO 0.5 % (0.3-3.8); EOSINOPHILS ABSOLUTE AUTO 0.1 x10-3/uL (0.0-0.6); EOSINOPHILS PERCENT AUTO 0.9 % (0.1-6.8); LYMPHOCYTES ABSOLUTE AUTO 2.0 x10-3/uL (0.5-4.5); LYMPHOCYTES PERCENT AUTO 24.7 % (15.8-45.3); MEAN PLATELET VOLUME 8.6 fL (6.7-11.0); MONOCYTES ABSOLUTE AUTO 0.5 x10-3/uL (0.0-1.2); MONOCYTES PERCENT AUTO 6.2 % (5.5-15.2); NEUTROPHILS ABSOLUTE AUTO 5.5 x10-3/uL (1.7-6.9); NEUTROPHILS PERCENT AUTO 67.7 % (40.3-71.8); PLATELET COUNT,PLT 257 x10(3)uL (117-477); RED BLOOD CELL COUNT 5.25 x10(6)uL (3.90-5.90); RED CELL DISTRIBUTION WIDTH 14.0 % (12.4-15.0); WHITE BLOOD CELL COUNT,WBC 8.2 x10-3/uL (3.2-10.1)
[2025-02-26 14:27] LABS: BLOOD UREA NITROGEN,BUN 29 mg/dL (7-18); CARBON DIOXIDE,CO2 25 mmol/L (21-32); CHLORIDE,CL 101 mmol/L (100-110); CREATININE 1.4 mg/dL (0.70-1.30); EST CRCL DRUG DOSING (CG) 56.39 mL/min; ESTIMATED GFR 60 mL/min (>60); GLUCOSE RANDOM 89 mg/dL (80-116); POTASSIUM,K 4.8 mmol/L (3.5-5.3); SODIUM,NA 135 mmol/L (135-145)
[2025-02-26 14:43] LABS: A/G RATIO 0.9; ASPARTATE AMNIOTRANSFERASE,AST 87 IU/L (5-25); BILIRUBIN TOTAL 0.7 mg/dL (0.1-1.3); PROTEIN TOTAL,TP 9.1 g/dL (6.0-8.0)
[2025-02-26 14:55] LABS: ALANINE AMINOTRANSFERASE,ALT 166 U/L (12-36); CREATINE KINASE,CK 434 IU/L (60-160)
== END 2025-02-26 15:20 | disposition home or self-care (01) ==
LOC: FB.ED 13:22
DX: E86.0 Dehydration (principal); N17.9 Acute kidney failure, unspecified; R74.01 Elevation of levels of liver transaminase levels; I10 Essential (primary) hypertension; I25.2 Old myocardial infarction; E11.9 Type 2 diabetes mellitus without complications; E66.9 Obesity, unspecified; Z86.16 Personal history of COVID-19; Z79.84 Long term (current) use of oral hypoglycemic drugs; Z79.899 Other long term (current) drug therapy; Z68.42 Body mass index [BMI] 45.0-49.9, adult
CPT/HCPCS: 36415; 71045; 71045-26; 80053; 82550; 85025; 87428-QW; 96360; 99284; 99285-25; J7030